=== PATIENT | male | born 1965 | race Hispanic/Latino ===

== ENCOUNTER 2020-07-07 09:14 | Day surgery (SDC) | payer OTHER ==
[2020-07-05 12:40] VITALS: BMI 27.3
[2020-07-07] MEDS ORDERED: PROPOFOL 20 ML ONE (11:23)
== END 2020-07-07 13:15 | disposition home or self-care (01) ==
LOC: CSHSDC 09:14
PROVIDERS: ATTEND Internal Medicine Gastroenterology
PROC: 0DJD8ZZ Inspection of Lower Intestinal Tract, Via Natural or Artificial Opening Endoscopic (ICD-10-PCS; principal; 2020-07-07)
DX: Z12.11 Encounter for screening for malignant neoplasm of colon (principal); K64.9 Unspecified hemorrhoids
CPT/HCPCS: J2704